=== PATIENT | female | born 1945 | race Caucasian/White ===

== ENCOUNTER 2016-11-23 13:10 | Emergency (ER) | payer MEDICARE, OTHER ==
[~2016-11-23] VITALS: Ht 175.3 cm; Wt 125.0 kg
[2016-11-23 13:10] VITALS: BP 163/101; PULSE 42; RESP 12
[~2016-11-23 13:10] MED LIST: ALBU1AER; ASPI81TA11 PO; B-COTAB30 PO; CALCIUM CHLORIDE 10% SOLN 1 GRAM/10 ML SYR IV ONE; CEFT1INJ IM; CEFT250T8 PO; CLON-352 PO; CYMB60CA OR; EPINEPHrine HCL (1:10,000) 1 MG/10 ML SYRINGE IV ONE; EPINEPHrine HCL (1:1000) 30 MG/30 ML VIAL IV ONE; LISI10TA PO; MAGNESIUM SULFATE 40 MEQ/10 ML VIAL IV ONE; NORV10TA PO; PERC10TA27 PO; PHEN100 PO; PRAV40TA2 PO; PRED20 PO; SENO8.6T10 PO; SERO100T PO; SODIUM BICARBONATE 8.4% INJ 50 MEQ/50 ML SYR IV ONE; SOLU125I IM; SYMB160A; TRAM50TA PO; VALI5TAB PO; VITA20002 PO; [UNRECOGNIZED DRUG - CODE] PO
--- NOTE | 2016-11-23 14:02 | PD ---
HPI Chief Complaint: Code Blue Time Seen by Provider: 13:49 Travel History International Travel<30 days: No Contact w/Intl Traveler<30days: No Traveled to known affect area: No History of Present Illness HPI 71yo F with PMH of CHF, afib, COPD, CAD was brought in by [facility] pulseless and unresponsive. As per [facility], pt has been having chest pain for 1 week and was unresponsive when they arrived. Pt responded to bag valve mask enough to say no to continue bagging. Pt had very faint pulse and they were not able to obtain a blood pressure so they started pt on dopamine drip. Pt was thought that she may have a STEMI but rhythm strip from EMS looked like a right bundle branch block. No official EKG was completed in the ED as pt was pulseless. Pt arrived in the ED unresponsive and when we checked her pulse, she did not have a pulse. ATLS was started and pt was subsequently intubated by respiratory therapy while I ran the code. Pt was PEA and we had ROSC for a brief moment but lose it before the epinephrine drip was really started. Pt was again in PEA and time was was called at 1:37pm. PFSH Past Medical History Medical History: Unable to Obtain Arthritis: Yes Asthma: No Atrial Fibrillation: Yes Anxiety: Yes Depression: Yes Heart Rhythm Problems: No Cancer: No Cardiovascular Problems: Yes High Cholesterol: No Chest Pain: No Congestive Heart Failure: Yes COPD: Yes Cerebrovascular Accident: No Diminished Hearing: No Endocrine: No Gastrointestinal Disorders: Yes (NAUSEA) GERD: No Genitourinary: No Headaches: No Hiatal Hernia: No Hypertension: Yes Immune Disorder: No Implanted Vascular Access Dvce: No Musculoskeletal: Yes Neurologic: No Psychiatric: Yes (ON [place]MB[place]) Reproductive: No Respiratory: Yes (COPD) Migraines: No Seizures: No Sleep Apnea: No Ulcer: No PNEUMOCCOCAL Vaccine (Year): 2 Menopausal: Yes Past Surgical History Surgical History: Unable to Obtain Abdominal Surgery: No Cardiac Surgery: No Section: Yes Ear Surgery: No Endocrine Surgery: No Eye Surgery: No Genitourinary Surgery: No Gynecologic Surgery: Yes (1 CS) Neurologic Surgery: No Oral Surgery: No Thoracic Surgery: No Other Surgery: Yes Social History Alcohol Use: Yes (RARE) Tobacco Use: No Substance Use: No Allergies-Medications (Allergen,Severity, Reaction): Coded Allergies: Lortab (Verified Allergy, Severe, 11/23/16) NAUSEA VOMITING Trazodone (Verified Allergy, Severe, 11/23/16) CONFUSION Reported Meds & Prescriptions Reported Meds & Active Scripts Active Active Prescriptions or Reported Medications Unobtainable Review of Systems ROS Limitations: Unresponsive Physical Exam Narrative GENERAL: 71yo F unresponsive. SKIN: Cool and dry. HEAD: Atraumatic. Normocephalic. EYES: Pupils fixed and dilated at 5mm bilaterally. ENT: No nasal bleeding or discharge. Blood from ET tube after compression. NECK: Trachea midline. No JVD. CARDIOVASCULAR: Pulseless. RESPIRATORY: Intubated. Breath sounds bilateral after intubation. GASTROINTESTINAL: Abdomen soft, non-tender, nondistended. MUSCULOSKELETAL: No obvious deformities. No clubbing. No cyanosis. No edema. NEUROLOGICAL: Unresponsive. Decorticating upper extremities. Data Data Last Documented VS Vital Signs Date Time Temp Pulse Resp B/P Pulse Ox O2 Delivery O2 Flow Rate FiO2 11/23/16 13:10 42 12 163/101 MDM Medical Decision Making Medical Screen Exam Complete: Yes Emergency Medical Condition: Yes Differential Diagnosis PEA arrest vs. massive WI vs. ICH vs. PE Narrative Course 71yo F with CHF, afib, COPD, CAD with chest pain for 1 week. Pt found pulseless upon arrival to the ED and ACLS was initiated. Total of 4 epinephrine, 1 amp of sodium bicarb and calcium chloride given. Pt was intubated by respiratory therapist during the code and had visualization of ET tube through vocal cord and had bilateral breath sounds subsequently. Pt started having blood from the ET tube in the middle of the compression, likely traumatic from the compression. Pt did have ROSC with a pulse but did not last long and went back into PEA arrest as epinephrine drip was started. Further resuscitation was attempted but pt never regain ROSC and time of was called after bedside ultrasound showed no cardiac activity. Pt had a son when [facility] arrived but no family member in the ED. Charge nurse will contact family member. Diagnosis Primary Impression: Cardiac arrest Scripts Unable to Obtain Active Prescriptions or Reported Meds Condition: Estrella Montero DO Nov 23, 2016 14:02
== END 2016-11-23 19:00 | disposition expired ==
LOC: NEPE 13:10 → NEPI 19:00
DX: I46.9 Cardiac arrest, cause unspecified (principal); J44.9 Chronic obstructive pulmonary disease, unspecified; I25.10 Atherosclerotic heart disease of native coronary artery without angina pectoris; I50.9 Heart failure, unspecified; I48.91 Unspecified atrial fibrillation; I10 Essential (primary) hypertension
CPT/HCPCS: 31500; 92950; 99285; J0171; J3475